=== PATIENT | female | born 1940 | race Caucasian/White ===

== ENCOUNTER 2016-10-11 18:05 | Emergency (ER) | payer MEDICARE ==
--- NOTE | 2016-10-11 18:20 | UC ---
Back Pain HPI - HPI Summary HPI Summary: 3 days of fever per pt (not febrile at urgent care) pain in back but does say that she went carter picking---no ent c/o no n/v/d no urinary symptoms does have back pain - History of Current Complaint Chief Complaint: UCBackPain Stated Complaint: FEVER BODY PAIN Time Seen by Provider: 10/11/16 18:19 Hx Obtained From: Patient ?: No Onset/Duration: Gradual Onset, Lasting Days - 3, Still Present Timing: Constant Severity Initially: Moderate Severity Currently: Moderate Pain Intensity: 4 Pain Scale Used: 0-10 Numeric Back Pain: Is Discrete @ - low back Character: Aching, Throbbing, Spasmodic, Stiffness Aggravating: Movement, Lifting, Bending Alleviating: Nothing - Allergies/Home Medications Allergies/Adverse Reactions: Allergies Allergy/AdvReac Type Severity Reaction Status Date / Time Azithromycin [From Zithromax] Allergy Severe GI Verified 10/11/16 18:13 Cephalexin Allergy Severe Rash, Verified 10/11/16 18:13 ITHCHING Erythromycin Allergy Severe Rash Verified 10/11/16 18:13 Sulfa Antibiotics Allergy Severe Rash, Verified 10/11/16 18:13 ITCHING Penicillins Allergy Intermediate Rash Verified 10/11/16 18:13 Home Medications: Home Medications Ibuprofen TAB* [Advil TAB*] 200 mg PO PRN 10/11/16 [History] Lysine [Lysinyl] 1 pow XX DAILY 10/11/16 [History Confirmed 10/11/16] Multiple Vitamins W/ Minerals [Multivitamin Adults] 1 tab PO DAILY 10/11/16 [ History Confirmed 10/11/16] PMH/Surg Hx/FS Hx/Imm Hx Previously Healthy: No - Surgical History Surgical History: Yes Surgery Procedure, Year, and Place: hysterectomy; umbilical hernia repair 05/2011 ; benign cyst removed from bilateral breast - Family History Known Family History: Positive: Unknown - Social History Occupation: Retired Lives: With Family Alcohol Use: Daily Alcohol Amount: one glass of wine per day Substance Use Type: None Smoking Status (MU): Former Smoker Type: Cigarettes Have You Smoked in the Last Year: No When Did the Patient Quit Smoking/Using Tobacco: 50 years - Immunization History Most Recent Tetanus Shot: unsure Review of Systems Constitutional: Fever Skin: Negative Eyes: Negative ENT: Negative Respiratory: Negative Cardiovascular: Negative Gastrointestinal: Negative Genitourinary: Negative Motor: Negative Neurovascular: Negative Musculoskeletal: Negative Neurological: Negative Psychological: Negative All Other Systems Reviewed And Are Negative: Yes Physical Exam Triage Information Reviewed: Yes Appearance: Well-Appearing, No Pain Distress, Well-Nourished Vital Signs: Initial Vital Signs Temp 99.3 F 10/11/16 18:07 Pulse 88 10/11/16 18:07 Resp 20 10/11/16 18:07 BP 154/78 10/11/16 18:07 Pulse Ox 100 10/11/16 18:07 Vital Signs Reviewed: Yes Eye Exam: Normal Eyes: Positive: Conjunctiva Clear ENT Exam: Normal ENT: Positive: Normal ENT inspection, Hearing grossly normal, Pharynx normal, TMs normal. Negative: Nasal congestion, Nasal drainage, Tonsillar swelling, Tonsillar exudate, Trismus, Muffled/hoarse voice Dental Exam: Normal Neck exam: Normal Neck: Positive: Supple, Nontender, No Lymphadenopathy Respiratory Exam: Normal Respiratory: Positive: Chest non-tender, Lungs clear, Normal breath sounds, No respiratory distress, No accessory muscle use Cardiovascular Exam: Normal Cardiovascular: Positive: RRR, No Murmur, Pulses Normal, Brisk Capillary Refill Abdominal Exam: Normal Abdomen Description: Positive: Nontender, No Organomegaly, Soft Bowel Sounds: Positive: Present Musculoskeletal Exam: Normal Musculoskeletal: Positive: Strength Intact, ROM Intact, No Edema Neurological Exam: Normal Neurological: Positive: Alert, Muscle Tone Normal Psychological Exam: Normal Skin Exam: Normal Diagnostics - Laboratory Diagnostic Studies Completed/Ordered: ua- +blood Back Pain Course/Dx - Course Course Of Treatment: transfer to hospital with daughter driving - Differential Dx/Diagnosis Differential Diagnosis/HQI/PQRI: Epidural Abscess, Renal Colic, Strain, Sprain Provider Diagnoses: back pain, febrile illness - Physician Notifications Discussed Care With: chata gunderson Time Discussed With Above Provider: 19:00 Instructed by Provider To: Transfer Discharge - Discharge Plan Condition: Good Disposition: AGAINST MEDICAL ADVICE Referrals: Marlon Tiwari MD [Primary Care Provider] -
[2016-10-11 19:21] VITALS: BP 139/75
== END 2016-10-11 19:00 | disposition left against medical advice (07) ==
LOC: UCEAST 18:05
DX: M54.9 Dorsalgia, unspecified (principal); R50.9 Fever, unspecified; Z88.1 Allergy status to other antibiotic agents; Z88.3 Allergy status to other anti-infective agents; Z88.0 Allergy status to penicillin; Z87.891 Personal history of nicotine dependence
CPT/HCPCS: 81003; 99212; G0463

== ENCOUNTER 2016-10-11 19:31 | Emergency (ER) | payer MEDICARE ==
[2016-10-11] MEDS ORDERED: NS 0.9% 1000 ML* 1,000 ML IV ONE (21:24)
[2016-10-11 21:31] VITALS: BP 158/79
[2016-10-11 21:57] LABS: Hematocrit 35 % (35-47); Hemoglobin 11.6 g/dl (12.0-16.0); Mean Corpuscular HGB Conc 34 g/dl (31-36); Mean Corpuscular Hemoglobin 30 pg (27-31); Mean Corpuscular Volume 90 fL (80-97); Mean Platelet Volume 9 um3 (7.4-10.4); Red Blood Count 3.82 10^6/ul (4.0-5.4); Red Cell Distribution Width 13 % (10.5-15); White Blood Count 10.4 10^3/ul (3.5-10.8)
[2016-10-11 22:10] LABS: Albumin 4.1 g/dL (3.2-5.2); BUN/Creatinine Ratio 6.6 (8-20); C Reactive Protein 128.28 mg/L (< 5.00); Calcium 9.2 mg/dL (8.6-10.3); EGFR African American 95.4 (>60); EGFR Non-African American 74.2 (>60); Globulin 2.9 g/dL (2-4); Potassium 3.4 mmol/L (3.5-5.0); Total Bilirubin 0.8 mg/dL (0.2-1.0)
[2016-10-11 22:38] LABS: Urine Bacteria Absent (Absent); Urine Bilirubin Negative (Negative); Urine Glucose Negative (Negative); Urine Nitrite Negative (Negative)
[2016-10-12] MEDS ORDERED: DOXYcycline CAP(*) 100 MG PO ONE ×2 (00:24)
--- NOTE | 2016-10-12 00:28 | ED ---
Lakeshia Cunningham Rebecca, scribed for Hakan Stone MD on 10/11/16 at 2123 . HPI Febrile Illness - HPI Summary HPI Summary: Pt is a 76 y/o F who was referred from [facility] presents to ED c/o fever. Fever began 3 days ago in the evening and has been intermittent since onset, elevating up to 101, particularly at night. Additionally c/ urinary urgency, myalgias, a shooting pain in the UE and back pain. Back pain began 3 days ago while picking berries and was previously throughout the lumbar back, though this morning it localized to the lower L region. During sudden movement, the pain is a sharp, severe sensation. Currently, pt is not in any pain, ranking pain as 0/10. Denies CP, SOB, abd pain, diarrhea, edema, rash. Notes that in June or July she has walked her dog and found 3 ticks that had newly attached and not engorged. Reports that the UA at [facility] was negative today. PMHx bladder infection and has a follow up cystoscopy scheduled in 3 weeks. - History of Current Complaint Chief Complaint: EDFever Time Seen by Provider: 10/11/16 21:09 Hx Obtained From: Patient Onset/Duration: Started Days Ago - 3 days ago Timing: Intermittent Temperature: 101 F Current Severity: None Pain Intensity: 0 Pain Scale Used: 0-10 Numeric Aggravating Factors: Nothing Alleviating Factors: Nothing Associated Signs and Symptoms: Myalgia, Other: - Urinary urgency, back pain, shooting UE pain Related History: Recent Tick Bite - June/July - Allergy/Home Medications Allergies/Adverse Reactions: Allergies Allergy/AdvReac Type Severity Reaction Status Date / Time Azithromycin [From Zithromax] Allergy Severe GI Verified 10/11/16 21:28 Erythromycin Allergy Severe Rash Verified 10/11/16 21:28 Sulfa Antibiotics Allergy Severe Rash, Verified 10/11/16 21:28 ITCHING Penicillins Allergy Intermediate Rash Verified 10/11/16 21:28 PMH/Surg Hx/FS Hx/Imm Hx Endocrine/Hematology History: Denies: Hx Diabetes Cardiovascular History: Denies: Hx Hypertension, Hx Pacemaker/ICD History: Reports: Other Problems/Disorders - Bladder Infection Denies: Hx Dialysis, Hx Renal Disease Sensory History: Reports: Hx Hearing Aid Psychiatric History: Denies: Hx Panic Disorder - Surgical History Surgery Procedure, Year, and Place: hysterectomy; umbilical hernia repair 05/2011 ; benign cyst removed from bilateral breast Infectious Disease History: Reports: Hx Shingles Denies: Hx Clostridium Difficile, Hx Hepatitis, Hx Human Immunodeficiency Virus (HIV), Hx of Known/Suspected MRSA, Hx Tuberculosis, Hx Known/Suspected VRE , Hx Known/Suspected VRSA, History Other Infectious Disease, Traveled Outside the [place] in Last 30 Days - Family History Known Family History: Positive: Cardiac Disease, Other - A Fib (mother) - Social History Alcohol Use: Daily Alcohol Amount: one glass of wine per day Substance Use Type: Reports: None Smoking Status (MU): Former Smoker Type: Cigarettes Have You Smoked in the Last Year: No Review of Systems Positive: Fever Negative: Chest Pain Negative: Shortness Of Breath Negative: Abdominal Pain, Diarrhea Positive: urgency Positive: Arthralgia - Back pain, shooting UE pain, Myalgia. Negative: Edema Negative: Rash All Other Systems Reviewed And Are Negative: Yes Physical Exam - Summary Physical Exam Summary: General: well-appearing, no pain distress Skin: warm, color reflects adequate perfusion, dry, no rash Head: normal Eyes: EOMI, NAHID ENT: normal Neck: supple, nontender Respiratory: CTA, breath sounds present Cardiovascular: RRR Abdomen: soft, nontender Bowel: present Musculoskeletal: strength/ROM intact, tender around the left SI Neurological: normal, sensory/motor intact, A&O x3 Psychological: affect/mood appropriate Triage Information Reviewed: Yes Vital Signs On Initial Exam: Initial Vitals Temp Pulse Resp BP Pulse Ox 98.6 F 73 20 141/74 100 10/11/16 19:45 10/11/16 19:45 10/11/16 19:45 10/11/16 19:45 10/11/16 19:45 Vital Signs Reviewed: Yes Diagnostics - Vital Signs Vital Signs Temp Pulse Resp BP Pulse Ox 10/11/16 20:45 98.1 F 78 155/79 100 10/11/16 19:45 98.6 F 73 20 141/74 100 - Laboratory Lab Results: Lab Results 10/11/16 10/11/16 10/11/16 Range/Units 21:45 21:45 21:45 WBC 10.4 (3.5-10.8) 10^3/ul RBC 3.82 L (4.0-5.4) 10^6/ul Hgb 11.6 L (12.0-16.0) g/dl Hct 35 (35-47) % MCV 90 (80-97) fL MCH 30 (27-31) pg MCHC 34 (31-36) g/dl RDW 13 (10.5-15) % Plt Count 156 (150-450) 10^3/ul MPV 9 (7.4-10.4) um3 Neut % (Auto) 79.2 (38-83) % Lymph % (Auto) 10.4 L (25-47) % [place] % (Auto) 8.7 (1-9) % Eos % (Auto) 0.1 (0-6) % Baso % (Auto) 1.6 (0-2) % Absolute Neuts (auto) 8.2 H (1.5-7.7) 10^3/ul Absolute Lymphs (auto) 1.1 (1.0-4.8) 10^3/ul Absolute Monos (auto) 0.9 H (0-0.8) 10^3/ul Absolute Eos (auto) 0 (0-0.6) 10^3/ul Absolute Basos (auto) 0.2 (0-0.2) 10^3/ul Absolute Nucleated RBC 0 10^3/ul Nucleated RBC % 0 INR (Anticoag Therapy) 0.94 (0.89-1.11) APTT 32.8 (26.0-36.3) seconds D-Dimer, Quantitative 201 (Less Than 230) ng/mL Sodium 135 (133-145) mmol/L Potassium 3.4 L (3.5-5.0) mmol/L Chloride 103 (101-111) mmol/L Carbon Dioxide 25 (22-32) mmol/L Anion Gap 7 (2-11) mmol/L BUN 5 L (6-24) mg/dL Creatinine 0.76 (0.51-0.95) mg/dL Est GFR ( Amer) 95.4 (>60) Est GFR (Non-Af Amer) 74.2 (>60) BUN/Creatinine Ratio 6.6 L (8-20) Glucose 147 H (70-100) mg/dL Lactic Acid (0.5-2.0) mmol/L Calcium 9.2 (8.6-10.3) mg/dL Total Bilirubin 0.80 (0.2-1.0) mg/dL AST 16 (13-39) U/L ALT 12 (7-52) U/L Alkaline Phosphatase 48 (34-104) U/L Troponin I 0.00 (<0.04) ng/mL C-Reactive Protein 128.28 H (< 5.00) mg/L Total Protein 7.0 (6.4-8.9) g/dL Albumin 4.1 (3.2-5.2) g/dL Globulin 2.9 (2-4) g/dL Albumin/Globulin Ratio 1.4 (1-3) Lipase 11 (11.0-82.0) U/L Urine Color Urine Appearance Urine pH (5-9) Ur Specific [place] (1.010-1.030) Urine Protein (Negative) Urine Ketones (Negative) Urine Blood (Negative) Urine Nitrate (Negative) Urine Bilirubin (Negative) Urine Urobilinogen (Negative) Ur Leukocyte Esterase (Negative) Urine WBC (Auto) (Absent) Urine RBC (Auto) (Absent) Ur Squamous Epith Cells (Absent) Urine Bacteria (Absent) Urine Glucose (Negative) 10/11/16 10/11/16 Range/Units 21:45 22:30 WBC (3.5-10.8) 10^3/ul RBC (4.0-5.4) 10^6/ul Hgb (12.0-16.0) g/dl Hct (35-47) % MCV (80-97) fL MCH (27-31) pg MCHC (31-36) g/dl RDW (10.5-15) % Plt Count (150-450) 10^3/ul MPV (7.4-10.4) um3 Neut % (Auto) (38-83) % Lymph % (Auto) (25-47) % [place] % (Auto) (1-9) % Eos % (Auto) (0-6) % Baso % (Auto) (0-2) % Absolute Neuts (auto) (1.5-7.7) 10^3/ul Absolute Lymphs (auto) (1.0-4.8) 10^3/ul Absolute Monos (auto) (0-0.8) 10^3/ul Absolute Eos (auto) (0-0.6) 10^3/ul Absolute Basos (auto) (0-0.2) 10^3/ul Absolute Nucleated RBC 10^3/ul Nucleated RBC % INR (Anticoag Therapy) (0.89-1.11) APTT (26.0-36.3) seconds D-Dimer, Quantitative (Less Than 230) ng/mL Sodium (133-145) mmol/L Potassium (3.5-5.0) mmol/L Chloride (101-111) mmol/L Carbon Dioxide (22-32) mmol/L Anion Gap (2-11) mmol/L BUN (6-24) mg/dL Creatinine (0.51-0.95) mg/dL Est GFR ( Amer) (>60) Est GFR (Non-Af Amer) (>60) BUN/Creatinine Ratio (8-20) Glucose (70-100) mg/dL Lactic Acid 0.8 (0.5-2.0) mmol/L Calcium (8.6-10.3) mg/dL Total Bilirubin (0.2-1.0) mg/dL AST (13-39) U/L ALT (7-52) U/L Alkaline Phosphatase (34-104) U/L Troponin I (<0.04) ng/mL C-Reactive Protein (< 5.00) mg/L Total Protein (6.4-8.9) g/dL Albumin (3.2-5.2) g/dL Globulin (2-4) g/dL Albumin/Globulin Ratio (1-3) Lipase (11.0-82.0) U/L Urine Color Straw Urine Appearance Clear Urine pH 7.0 (5-9) Ur Specific [place] 1.003 L (1.010-1.030) Urine Protein Negative (Negative) Urine Ketones Negative (Negative) Urine Blood 1+ H (Negative) Urine Nitrate Negative (Negative) Urine Bilirubin Negative (Negative) Urine Urobilinogen Negative (Negative) Ur Leukocyte Esterase Negative (Negative) Urine WBC (Auto) Absent (Absent) Urine RBC (Auto) Trace(0-2/hpf) (Absent) Ur Squamous Epith Cells Present H (Absent) Urine Bacteria Absent (Absent) Urine Glucose Negative (Negative) Result Diagrams: 10/11/16 21:45 07/08/17 21:45 Lab Statement: Any lab studies that have been ordered have been reviewed, and results considered in the medical decision making process. - CT CT Abd/Pel CT Interpretation Completed By: Radiologist - There is a nodule in the left lowe rlobe again noted measuring approximately 8 mm slightly decreased in size from prior CT. Mild scarring in the lingula and bilateral lower lobes. The liver , gallbladder, spleen, pancreas and adrenal glands are without gross abnormality within the limitations of a noncontrast CT. The kidneys are normal in size without hydronephrosis or nephrolithiasis. There are no stones seen along the course of the ureters or within the bladder. There is no bowel distention to suggest obstruction. moderate to large amount of retained stool in the colon. The appendix is not definitively identified. No intra-abdominal free are or free fluid. CT L-Spine CT Interpretation Completed By: Radiologist - There is no fracture of subluxation. Mild levelscoliosis of the lumbar spine with normal bony alignment. The vertebral body heights are preserved. Degenerative disc changes at L5/S1 with mild loss of disc height. The disc spaces are otherwise preserved. There is multilevel marginal endplate spurring. Bilateral facet arthropathy predominantly at the L4/L5 and L5/S1 levels. Posterior disc bulges throughout the lumbar spine most pronounced at L4/L5 impinging on the aura sac without significant stenosis. There is mild bony impingement on the left L5/S1 neural foramen secondary to posterior osteophytes. The paraspinal soft tissues are grossly normal. Re-Evaluation - Re-Evaluation First Eval Re-Evaluation Time: 00:14 Change: Unchanged Comment: Discussed lab and CT results with the pt. Course/Dx - Course Assessment/Plan: Pt is a 76 y/o F who was referred from [facility] presents to ED c/ o fever for 3 days, particularly at night during which it will elevate up to approximately 101. Additionally c/ urinary urgency, myalgias, a shooting pain in the UE and back pain. Back pain began 3 days ago while picking berries and was previously throughout the lumbar back, though this morning it localized to the lower L region. During sudden movement, the pain is a sharp, severe sensation. Currently, pt is not in any pain, ranking pain as 0/10. Denies CP, SOB, abd pain, diarrhea, edema, rash. Notes that in June or July she has walked her dog and found 3 ticks that had newly attached and not engorged. Reports that the UA at [facility] was negative today. PMHx bladder infection and has a follow up cystoscopy scheduled in 3 weeks. NO CRITICAL CARE TIME. PATIENT WITH FEVER AND HX TICK BITES. LOW BACK PAIN APPEARS MUSCULOSKELETAL. DISCHARGE HOME STABLE. - Diagnoses Provider Diagnoses: Fever, Tick bite, Low back pain Discharge - Discharge Plan Condition: Stable Disposition: HOME Prescriptions: DOXYcycline CAP(*) [DOXYcycline 100MG CAP(*)] 100 mg PO BID #40 cap Patient Education Materials: Tick Bite (ED), Fever in Adults (ED), Back Pain ( ED) Referrals: Marlon Tiwari MD [Primary Care Provider] - Additional Instructions: FOLLOW UP WITH YOUR DOCTOR. RETURN TO THE EMERGENCY DEPARTMENT FOR ANY WORSENING OF YOUR CONDITION; FEVER, YOU FEEL ILL OR QUESTIONS OR CONCERNS. The documentation as recorded by the Lakeshia gibbs Rebecca accurately reflects the service I personally performed and the decisions made by me, Hakan Stone MD.
--- NOTE | 2016-10-12 07:32 | RAD ---
CLINICAL HISTORY: Left SI, flank pain, low back pain COMPARISON: June 27, 2015, CT dated December 10, 2010 TECHNIQUE: Multiple contiguous axial CT scans were obtained of the abdomen and pelvis, without intravenous contrast enhancement. Coronal and sagittal multiplanar reformations are submitted for review. Oral contrast was not administered. Additionally thin section axial images were obtained through the lumbar spine with coronal and sagittal multiplanar reformations. FINDINGS: The study is limited by the lack of intravenous contrast. This limits evaluation of the solid organs and vasculature. LUNG BASES: There is a 0.8 cm nodule of the left lower lobe. This can be identified on the 2011 examination and is stable. The stability is consistent with a benign nodule LIVER: The liver is normal in shape, size, contour, and attenuation. BILE DUCTS: There is no intrahepatic or extrahepatic biliary dilatation. GALLBLADDER: The gallbladder is normal, without pericholecystic inflammatory change. PANCREAS: The pancreas is normal, without mass or ductal dilatation. SPLEEN: Normal in size and appearance. UPPER GI TRACT: Evaluation of the gastrointestinal tract is limited by incomplete gastric distention. The upper GI tract is unremarkable. SMALL BOWEL AND MESENTERY: The small bowel is normal in contour, course, and caliber. There is no obstruction or dilatation. COLON: The colon is normal in contour, course, caliber. There is no pericolonic inflammatory change. There is large amount of stool within the colon ADRENALS: Normal bilaterally. KIDNEYS: The kidneys are normal in shape, size, contour, and axis. There is no hydronephrosis or nephrolithiasis. BLADDER: The bladder is smooth in contour. PELVIC ORGANS: The pelvic organs are not visualized. AORTA: There is calcific atherosclerotic disease of the abdominal aorta and its branches, without aneurysmal dilatation IVC: Unremarkable LYMPH NODES: There is no lymphadenopathy by size criteria. ABDOMINAL WALL: There is no evidence for abdominal wall hernia. BONES AND SOFT TISSUES: The vertebral bodies are preserved in height. There is mild anterolateral marginal osteophyte formation. There is facet osteoarthritic change most pronounced along the lower lumbar spine at L4-L5 and L5-S1. There are disc bulges at L3-L4, L4-L5, and L5-S1. There is marginal osteophyte formation at the neural foramina most pronounced at L5-S1. There is mild left neural foraminal narrowing at L5-S1. There is no significant osseous central canal stenosis. OTHER: None IMPRESSION: 1. LARGE AMOUNT OF STOOL THROUGHOUT THE COLON. 2. DEGENERATIVE DISC DISEASE AND OSTEOARTHRITIS. 3. NO HYDRONEPHROSIS OR NEPHROLITHIASIS.
== END 2016-10-12 00:50 | disposition home or self-care (01) ==
LOC: ED 19:31
DX: R50.9 Fever, unspecified (principal); M54.5 Low back pain; T14.8 Other injury of unspecified body region; W57.XXXD Bitten or stung by nonvenomous insect and other nonvenomous arthropods, subsequent encounter; R39.15 Urgency of urination; M79.1 Myalgia; Z90.710 Acquired absence of both cervix and uterus; Z88.1 Allergy status to other antibiotic agents; Z88.0 Allergy status to penicillin; Z88.2 Allergy status to sulfonamides; Z87.891 Personal history of nicotine dependence
CPT/HCPCS: 36415; 72131; 74176; 80053; 81003; 81015; 83605; 83690; 84484; 85025; 85379; 85610; 85730; 86140; 86618; 99282; A9270-GY

== ENCOUNTER 2017-10-12 06:34 | Day surgery (SDC) | payer BC, MEDICARE ==
[~2017-10-12 06:34] MED LIST: Buffered Lidocaine 0.9% SYRIN* 5 ML/SYR SYRINGE INTRADERM ONE
[2017-10-12] MEDS ORDERED: Midazolam* 1 MG/ML 2 ML VIAL (2 MG) ONE (06:53)
[2017-10-12] MEDS ORDERED: fentaNYL* 50 MCG/ML 2 ML VIAL (100 MCG VIAL) ONE (06:54)
[2017-10-12] MEDS ORDERED: Ondansetron INJ* 2 MG/ML VIAL ONE (07:26)
[2017-10-12 08:43] VITALS: BP 123/64
[2017-10-12] MEDS ORDERED: Tropicamide 1% OPTH.SOL* BTL ONE (09:09)
[2017-10-12] MEDS ORDERED: Phenylephrine 2.5% OPTH.SOL* 2 ML BTL ONE (09:09)
[2017-10-12] MEDS ORDERED: Cyclopentolate 1% OPTH.SOL* 2 ML BTL ONE (09:09)
[2017-10-12] MEDS ORDERED: Tetracaine 0.5% OPTH.SOL 4 ML* 1 DROP BTL ONE (09:09)
[2017-10-12] MEDS ORDERED: Neomycin/Polymy/Dex OPHTH.OIN* 3.5 GM ONE (09:09)
[2017-10-12] MEDS ORDERED: Lidocaine 1%* 5 ML VIAL ONE (09:09)
[2017-10-12] MEDS ORDERED: Ketorolac 0.5% OPHTH (NF) 0.5 % 5 ML BTL ONE (09:09)
[2017-10-12] MEDS ORDERED: Povidone Iodine 5% OPTH* 30 ML BTL ONE (09:09)
--- NOTE | 2017-10-13 03:01 | OP ---
DATE OF OPERATION: 10/12/17 - [facility] DATE OF : 42 SURGEON: Rickie Montes De Oca MD ANESTHESIA: Monitored anesthesia care. PRE-OP DIAGNOSIS: Cataract, right eye. POST-OP DIAGNOSIS: Cataract, right eye. OPERATIVE PROCEDURE: Extracapsular cataract extraction of the right eye with intraocular lens implant. IMPLANTS: SN60WF 22.5 diopter lens to the right eye. COMPLICATIONS: None. DESCRIPTION OF PROCEDURE: The patient was given phenylephrine 2.5% and cyclopentolate 1% eye drops to the operative eye in the preoperative area. The patient was taken to the operating room where a time-out was taken to identify the correct patient, site, and side of surgery. The patient's right eye was prepped and draped in the usual sterile fashion with 5% Betadine. A second time -out was taken to verify the correct patient, site, and side of surgery, and correct lens implant. A lid speculum was placed to the right eye. A 1-mm paracentesis blade was used to make a clear corneal incision in the superotemporal position. Preservative free 1% lidocaine was injected into the anterior chamber. DisCoVisc was then injected into the anterior chamber. A 2.75 mm keratome blade was used to make a triplanar incision at the inferotemporal position. A cystotome initiated the capsulorrhexis, which was completed with Utrata forceps in a continuous and curvilinear manner. Hydrodissection of the lens was performed with BSS on a cannula. The lens could be spun in a capsular bag. The phacoemulsification handpiece was used with a divide and conquer technique to remove the nucleus with 17.82 CDE. The I /A handpiece was then removed with a residual cortical lens material. DisCoVisc was injected to inflate the capsular bag. The planned SN60WF 22.5 diopter lens was injected into the capsular bag. The residual DisCoVisc was removed from the eye with a I/A handpiece. The corneal incisions were hydrated and no leaks occurred at physiologic pressure around 20 mmHg per palpation. The lid speculum was removed and drapes removed. Maxitrol ointment was placed to the surface of the operative eye. An adhesive patch and shield was then placed on the operative eye. The patient was taken to the postoperative area in stable condition. [id number]/[facility] #: [id number] YENIFER
== END 2017-10-12 08:52 | disposition home or self-care (01) ==
LOC: OREAST 06:34
PROVIDERS: ATTEND Student in an Organized Health Care Education/Training Program
DX: H25.11 Age-related nuclear cataract, right eye (principal); H43.813 Vitreous degeneration, bilateral; H04.123 Dry eye syndrome of bilateral lacrimal glands; Z87.891 Personal history of nicotine dependence
CPT/HCPCS: A9270-GY; J2250; J2405; J3010; V2632

== ENCOUNTER 2017-10-19 06:32 | Day surgery (SDC) | payer BC, MEDICARE ==
[~2017-10-19 06:32] MED LIST changes: +Acetaminophen TAB* 325 MG PO PRN
[2017-10-19] MEDS ORDERED: Midazolam* 1 MG/ML 2 ML VIAL (2 MG) ONE (07:31)
[2017-10-19] MEDS ORDERED: fentaNYL* 50 MCG/ML 2 ML VIAL (100 MCG VIAL) ONE (07:44)
[2017-10-19 08:20] VITALS: BP 127/65
[2017-10-19] MEDS ORDERED: acetaZOLAMIDE TAB* 250 MG ONE (09:32)
[2017-10-19] MEDS ORDERED: Tropicamide 1% OPTH.SOL* BTL ONE (09:32)
[2017-10-19] MEDS ORDERED: Tetracaine 0.5% OPTH.SOL 4 ML* 1 DROP BTL ONE (09:32)
[2017-10-19] MEDS ORDERED: Lidocaine 1%* 5 ML VIAL ONE (09:32)
[2017-10-19] MEDS ORDERED: Povidone Iodine 5% OPTH* 30 ML BTL ONE (09:32)
[2017-10-19] MEDS ORDERED: Ketorolac 0.5% OPHTH (NF) 0.5 % 5 ML BTL ONE (09:32)
[2017-10-19] MEDS ORDERED: Cyclopentolate 1% OPTH.SOL* 2 ML BTL ONE (09:32)
[2017-10-19] MEDS ORDERED: Neomycin/Polymy/Dex OPHTH.OIN* 3.5 GM ONE (09:32)
[2017-10-19] MEDS ORDERED: Phenylephrine 2.5% OPTH.SOL* 2 ML BTL ONE (09:32)
--- NOTE | 2017-10-19 13:03 | OP ---
DATE OF OPERATION: 10/19/17 - [facility] DATE OF : 42 SURGEON: Rickie Montes De Oca MD ANESTHESIA: Monitored anesthesia care. PRE-OP DIAGNOSIS: Cataract, left eye. POST-OP DIAGNOSIS: Cataract, left eye. OPERATIVE PROCEDURE: Extracapsular cataract extraction of the left eye with intraocular lens implant. IMPLANTS: SN60WF 22.0 diopter lens to the left eye. COMPLICATIONS: None. DESCRIPTION OF PROCEDURE: The patient was given phenylephrine 2.5% and cyclopentolate 1% eyedrops to the operative eye in the preoperative area. The patient was taken to the operating room where a time-out was taken to identify the correct patient, site, and side of surgery and correct lens selection. The patient's left eye was prepped and draped in usual sterile fashion with 5% Betadine. A second time-out was taken to verify the correct patient, site, and side of surgery, and correct lens implant. A lid speculum was placed in the left eye. A 1 mm paracentesis blade was used to make a clear corneal incision in the inferotemporal position. Preservative-free 1% lidocaine was injected into the anterior chamber. DisCoVisc was then injected into the anterior chamber. A 2.75 mm keratome blade was used to make a triplanar incision at the superotemporal position. A cystotome initiated a capsulorrhexis, which was completed with Utrata forceps in a continuous and curvilinear manner. Hydrodissection of the lens was performed with BSS on a cannula. The lens could be spun in the capsular bag. The phacoemulsification handpiece was used with [id number] technique to remove the nucleus with 16.23 CDE. The I/ A handpiece then removed the residual cortical lens material. DisCoVisc was then injected to inflate the capsular bag. The planned SN60WF 22.0 diopter lens was injected in the capsular bag. The residual DisCoVisc was removed from the eye with the I/A handpiece. The corneal incisions were hydrated and no leaks occurred at physiologic pressure around 20 mmHg per palpation. The lid speculum was removed and drapes removed. Maxitrol ointment was placed to the surface of the operative eye. An adhesive patch and shield was placed on the operative eye. The patient was taken to the postoperative area in stable condition. [id number]/[facility] #: [id number] MTDD
== END 2017-10-19 08:31 | disposition home or self-care (01) ==
LOC: OREAST 06:32
PROVIDERS: ATTEND Student in an Organized Health Care Education/Training Program
DX: H25.12 Age-related nuclear cataract, left eye (principal); H43.813 Vitreous degeneration, bilateral; H04.123 Dry eye syndrome of bilateral lacrimal glands; Z88.0 Allergy status to penicillin; Z87.891 Personal history of nicotine dependence; F41.9 Anxiety disorder, unspecified; M19.90 Unspecified osteoarthritis, unspecified site; M54.9 Dorsalgia, unspecified
CPT/HCPCS: A9270-GY; J2250; J3010; V2632

== ENCOUNTER 2017-12-08 09:56 | Emergency (ER) | payer MEDICARE ==
[2017-12-08 10:17] VITALS: BP 130/75
--- NOTE | 2017-12-08 10:48 | UC ---
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 Denies trauma, pain, loss of sensation or function in fourth digit. Patient just would prefer to have ring cut off as she can no longer take it off herself. - History of Current Complaint Chief Complaint: UCUpperExtremity Stated Complaint: RING STUCK ON FINGER Time Seen by Provider: 12/08/17 10:22 Hx Obtained From: Patient Onset/Duration: Gradual Onset Current Severity: None Pain Intensity: 0 - Allergy/Home Medications Allergies/Adverse Reactions: Allergies Allergy/AdvReac Type Severity Reaction Status Date / Time ciprofloxacin [From Cipro] Allergy Severe See Comment Verified 12/08/17 10:06 clindamycin Allergy Severe Diarrhea Verified 12/08/17 10:06 pistachio nut Allergy Severe Anaphylatic Verified 12/08/17 10:06 Shock doxycycline Allergy Intermediate Nausea And Verified 12/08/17 10:06 Vomiting azithromycin [From Zithromax] Allergy GI Upset Verified 12/08/17 10:06 erythromycin base Allergy Rash Verified 12/08/17 10:06 Penicillins Allergy Rash Verified 12/08/17 10:06 Sulfa (Sulfonamide Allergy Rash And Verified 12/08/17 10:06 Antibiotics) Itching LATEX Allergy Intermediate Rash And Uncoded 12/08/17 10:06 Itching PMH/Surg Hx/FS Hx/Imm Hx Previously Healthy: Yes - Surgical History Surgical History: Yes Surgery Procedure, Year, and Place: hysterectomy; umbilical hernia repair 05/2011 ; benign cyst removed from bilateral breast - Family History Known Family History: Positive: Unknown, Cardiac Disease, Other - A Fib (mother) - Social History Alcohol Use: Daily Alcohol Amount: one glass of wine per day Substance Use Type: None Smoking Status (MU): Never Smoked Tobacco Type: Cigarettes Amount Used/How Often: 1PPD Have You Smoked in the Last Year: No When Did the Patient Quit Smoking/Using Tobacco: 50 years - Immunization History Most Recent Tetanus Shot: unsure Review of Systems Constitutional: Negative Skin: Negative Eyes: Negative ENT: Negative, Dental Pain Cardiovascular: Negative Gastrointestinal: Negative Genitourinary: Negative Motor: Negative Neurovascular: Negative Musculoskeletal: Negative Neurological: Negative Psychological: Negative All Other Systems Reviewed And Are Negative: Yes Physical Exam - Summary Physical Exam Summary: No erythema, wound, ecchymosis, swelling, deformity, loss of sensation or function noted on fourth digit of left hand. Plain moves freely but cannot slide up and over PIP joint of fourth digit. Patient able to flex and extend fourth digit distal to ringing without any indication of pain or loss of range of motion. PMS intact distally, cap refill immediate. 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 Denies trauma, pain, loss of sensation or function in fourth digit. Patient just would prefer to have ring cut off as she can no longer take it off herself. Physical exam:No erythema, wound, ecchymosis, swelling, deformity, loss of sensation or function noted on fourth digit of left hand. Plain moves freely but cannot slide up and over PIP joint of fourth digit. Patient able to flex and extend fourth digit distal to ringing without any indication of pain or loss of range of motion. PMS intact distally, cap refill immediate. Ring successfully removed. No injury to patient - Differential Dx - Multi-Symptom Provider Diagnoses: ring removal Discharge - Sign-Out/Discharge Documenting (check all that apply): Patient Departure All imaging exams completed and their final reports reviewed: No Studies - Discharge Plan Condition: Stable Disposition: HOME Referrals: Marlon Tiwari MD [Primary Care Provider] - - Billing Disposition and Condition Condition: STABLE Disposition: Home
== END 2017-12-08 10:30 | disposition home or self-care (01) ==
LOC: UCEAST 09:56
DX: M79.89 Other specified soft tissue disorders (principal); Z88.0 Allergy status to penicillin; Z88.2 Allergy status to sulfonamides; Z88.1 Allergy status to other antibiotic agents; Z91.040 Latex allergy status; Z91.018 Allergy to other foods; Z87.891 Personal history of nicotine dependence
CPT/HCPCS: 99212; G0463

== ENCOUNTER 2018-09-09 08:30 | Day surgery (SDC) | payer MEDICARE ==
[~2018-09-09 08:30] MED LIST changes: -Acetaminophen TAB* 325 MG PO PRN; -Buffered Lidocaine 0.9% SYRIN* 5 ML/SYR SYRINGE INTRADERM ONE; +Buffered Lidocaine 1% SYRIN* 1 ML/SYRINGE INTRADERM ONE; +Lactated Ringers 1000 ML Bag* 1,000 ML IV SCH
[2018-09-09] MEDS ORDERED: Bupivacaine 0.25% SDV PF* 10 ML VIAL INJ ONE (09:19)
[2018-09-09] MEDS ORDERED: fentaNYL* 50 MCG/ML 2 ML VIAL (100 MCG VIAL) ONE (09:35)
[2018-09-09 10:27] VITALS: BP 141/70
--- NOTE | 2018-09-09 13:31 | OP ---
DATE OF OPERATION: 09/09/18 - [facility] DATE OF : 42 SURGEON: Surjit Diaz MD ADVERTISER: CARIN Perez ANESTHESIOLOGIST: Dr. Laguna. ANESTHESIA: Local MAC. PRE-OP DIAGNOSIS: Left trigger thumb. POST-OP DIAGNOSIS: Left trigger thumb. OPERATIVE PROCEDURE: Left trigger thumb release. INDICATIONS: Gianlucas thumb is stuck. She is unable to bend it down. We talked about risks and benefits and she wants to proceed. She understands the risk of digital nerve injury. ESTIMATED BLOOD LOSS: 2 mL. COMPLICATIONS: None. FINDINGS: See above and below. DESCRIPTION OF PROCEDURE: Destinee was seen in the preoperative holding area. The correct site, side, and procedure were identified. We came back to the operating room where the arm was prepped and draped in the usual fashion and time-out was performed. The arm was exsanguinated with the Esmarch and the tourniquet was inflated to 200 mmHg. I made a transverse incision in the MP joint flexion crease. Full- thickness flaps were bluntly raised off the tendon sheath. Ragnell retractors were placed. The A1 maury was incised longitudinally with a knife and scissors. Once I had done a complete release distally, I then came proximally to little bit more release. At this point, I had her flex and extend the thumb and she had full motion in the thumb. Everything was looking good, so we irrigated out the wound. Skin was closed with 4-0 nylon suture. A soft dressing was applied and she was taken to the recovery room in stable condition. [id number]/[facility] #: [id number] [facility]
== END 2018-09-09 10:39 | disposition home or self-care (01) ==
LOC: OREAST 08:30
PROVIDERS: ATTEND Orthopaedic Surgery Hand Surgery
DX: M65.312 Trigger thumb, left thumb (principal); M79.7 Fibromyalgia; R00.2 Palpitations; Z87.891 Personal history of nicotine dependence; M19.90 Unspecified osteoarthritis, unspecified site
CPT/HCPCS: J3010; J3490